=== PATIENT | female | born 1995 | race Caucasian/White ===

== ENCOUNTER 2017-08-31 21:58 | Emergency (ER) | payer BC ==
[2017-08-31 22:10] VITALS: RESP 16; O2SAT 96
--- NOTE | 2017-08-31 22:24 | EDPHY ---
H & P Stated Complaint: chin lac, intoxicated Time Seen by Provider: 08/31/17 22:00 HPI/ROS: Chief Complaint: Chin laceration, intoxication HPI: 22-year-old female with became intoxicated this evening. She states that she tripped over her own feet striking her chin on the ground. She sustained a laceration. Denies any loss of conscious. Does have some abrasions on her left is low. Did not hit her head. No nausea or vomiting. No neck pain. No numbness or tingling. She has been ambulating on her own. No nausea or vomiting. She is up-to-date on her tetanus. ROS: 10 point Review of Systems is negative except as noted in the HPI. PMH: Denies Social History: No smoking, positive for alcohol Family History: non-contributory Physical Exam: Gen: Awake, Alert, No Distress HEENT: She has a 1.5 cm laceration in the submental area of her chin into the subcutaneous fat. Nose: no rhinorrhea Eyes: PERRLA, EOMI Mouth: Moist mucosa She has no mandibular tenderness. No temporomandibular joint tenderness. She states that her bite feels normal Neck: Supple, no JVD Chest: nontender, lungs clear to auscultation Heart: S1, S2 normal, no murmur Abd: Soft, non-tender, no guarding Back: no CVA tenderness, no midline tenderness Ext: no edema, brain her left patella. No bony tenderness. Full range of motion without pain. Skin: no rash Neuro: CN II-XII intact, Sensation grossly intact, Strength 5/5 in bilateral upper and lower extremities - Personal History LMP (Females 10-55): 1-7 Days Ago Current Tetanus Diphtheria and Acellular Pertussis (TDAP): Yes - Medical/Surgical History Other PMH: asthma - Social History Smoking Status: Current some day smoker Constitutional: Initial Vital Signs Temperature (C) 36.4 C 08/31/17 22:06 Heart Rate 78 08/31/17 22:06 Respiratory Rate 16 08/31/17 22:06 Blood Pressure 142/87 H 08/31/17 22:06 O2 Sat (%) 96 08/31/17 22:06 O2 Delivery Mode Room Air Allergies/Adverse Reactions: No Known Allergies Allergy (Unverified 08/31/17 22:05) Home Medications: Medication Instructions Recorded NK [No Known Home Meds] 08/31/17 Medical Decision Making Procedures: Procedure: Laceration repair. Verbal consent was obtained from the patient. The 1.5 cm laceration on the chin was anesthetized in the usual fashion. The wound was irrigated, draped and explored to its base with a gloved finger. There were no deep structures involved. No tendon injury was identified. The wound was repaired with 4, 5-0 Ethilon simple interrupted sutures. The wound repair was uncomplicated. The procedure was performed by myself. Differential Diagnosis: Patient is awake and appropriate. Ambulating unassisted to the bathroom. No current complaints. A laceration has been repaired. Medically cleared for the [facility] Departure - Departure Disposition: Home, Routine, Self-Care Clinical Impression: Alcohol intoxication, Laceration Condition: Good Instructions: Laceration (ED), Care For Your Stitches (ED), Alcohol Intoxication (ED) Additional Instructions: Your sutures need to be removed in 5 days. You can go to [facility] to have this performed. Return to the emergency depart for increasing pain, fevers, chills, worsening redness, discharge, or concerns. Referrals: [facility],. [Clinic] - As per Instructions
[2017-08-31 22:41] VITALS: BP 113/74; PULSE 66; TEMP 97.9
== END 2017-08-31 22:41 | disposition home or self-care (01) ==
PROC: 0HQ1XZZ Repair Face Skin, External Approach (ICD-10-PCS; principal; 2017-08-31)
DX: S01.81XA Laceration without foreign body of other part of head, initial encounter (principal); W18.40XA Slipping, tripping and stumbling without falling, unspecified, initial encounter; Y92.89 Other specified places as the place of occurrence of the external cause; F17.200 Nicotine dependence, unspecified, uncomplicated; F10.129 Alcohol abuse with intoxication, unspecified; J45.909 Unspecified asthma, uncomplicated